=== PATIENT | male | born 1945 ===

== ENCOUNTER → 2017-02-26 | Outpatient (CLI) | payer MEDICARE, OTHER ==
--- NOTE | 2017-02-26 12:20 | REP ---
Clinical: Pain. Technique: AP, lateral, bilateral oblique views of the right foot. Findings: Age-related degenerative changes to the midfoot and interphalangeal joints noted. No acute fracture dislocation. No healed fracture or trauma identified. The surrounding soft tissues are normal and without abnormal calcifications, subcutaneous emphysema or radiodense foreign body. Impression: Age-related changes. No obvious acute pathology appreciated. Signed by Tyler Julien MD 02/26/2017 12:12 P
== END ==
LOC: M WUC 11:45
PROVIDERS: ATTEND Physician Assistant
DX: M79.671 Pain in right foot (principal); M19.071 Primary osteoarthritis, right ankle and foot